=== PATIENT | male | born 1945 ===

== ENCOUNTER 2017-05-19 11:52 | Day surgery (SDC) | payer OTHER ==
[~2017-05-19 11:52] MED LIST: ANCEF/STERILE WATER 2 GM/20 ML 2 GM/20 ML SYRINGE IV NR; MARCAINE 0.5% INFILTRATI ONE; NACL 0.9% IR ONE
[2017-05-19] MEDS ORDERED: XYLOCAINE MPF 2% ONE (12:30)
[2017-05-19] MEDS ORDERED: ZOFRAN ONE (12:51)
[2017-05-19] MEDS ORDERED: DECADRON ONE (12:51)
[2017-05-19] MEDS ORDERED: QUELICIN ONE (12:51)
[2017-05-19] MEDS ORDERED: DIPRIVAN 10 MG/ML IV ONE (12:52)
[2017-05-19] MEDS ORDERED: SUBLIMAZE ONE (12:52)
[2017-05-19] MEDS ORDERED: NACL BACTERIOSTATIC INFILTRATI ONE (13:15)
--- NOTE | 2017-05-19 13:25 | Anesthesia Consultation ---
Anesthesia Consult and Med Hx Date of service: 05/19/17 - Airway Anesthetic Teeth Evaluation: Good ROM Head & Neck: Adequate Mental/Hyoid Distance: Adequate Mallampati Class: Class III Intubation Access Assessment: Good - Pulmonary Exam CTA: Yes - Cardiac Exam Cardiac Exam: RRR - Pre-Operative Health Status ASA Pre-Surgery Classification: ASA1 Proposed Anesthetic Plan: General - Pulmonary Hx Smoking: No Hx Sleep Apnea: No (SAMMI PRE SCREEN LOW RISK) - Cardiovascular System Hx Hypertension: No - Other Systems Hx Cancer: No
--- NOTE | 2017-05-19 13:25 | Anesthesia Day of Surgery ---
Anesthesia Day of Surgery - Day of Surgery Patient Examined: Yes Patient H&P Reviewed: Yes Patient is NPO: Yes Beta Blockers: No Cardiac Clearance: No Pulmonary Clearance: No
[2017-05-19] MEDS ORDERED: MARCAINE 0.5% 30 ML INFILTRATI ONE (13:45)
[2017-05-19] MEDS ORDERED: LACTATED RINGERS 1,000 ML IV SCH (14:00)
[2017-05-19] MEDS ORDERED: PEPCID IV NR (14:00)
[2017-05-19] MEDS ORDERED: DILAUDID ONE (14:26)
--- NOTE | 2017-05-19 15:09 | Short Stay Summary ---
Short Stay Documentation Date of service: 05/19/17 - History H&P: obtained from office - Allergies and Medications Current Medications: Allergies No Known Allergies Allergy (Verified 05/17/17 12:23) Home Medications Medication Instructions Recorded Confirmed Last Taken Type Cyanocobalamin (Vitamin B-12) 5,000 mcg PO DAILY 05/17/17 05/19/17 05/16/17 History [Vitamin B12] Diclofenac Dr [Voltaren Dr] 75 mg PO DAILY 05/17/17 05/19/17 05/16/17 History Multivits,Ca,Min/Iron/FA/Lycop 1 each PO DAILY 05/17/17 05/19/17 05/16/17 History [Centrum Men's Tablet] Active Medications Famotidine (Pepcid) 20 mg IV PREOP NR Stop: 05/19/17 23:59 Last Admin: 05/19/17 13:37 Dose: 20 mg Cefazolin Sodium (Ancef/Sterile Water 2 Gm/20 Ml) 2 gm in 20 mls @ 80 mls/hr IV PREOP NR PRN Reason: Protocol Stop: 05/19/17 23:59 Lactated Ringer's (Lactated Ringers) 1,000 mls @ 75 mls/hr IV DIRECT HENRI Last Admin: 05/19/17 13:35 Dose: 75 mls/hr - Brief post op/procedure progress note Date of procedure: 05/19/17 Pre-op diagnosis: rt inguinal hernia Post-op diagnosis: same Procedure: Rt inguinal hernia repair with mesh Anesthesia: GETA Surgeon: GEM VENEGAS Estimated blood loss: minimal Pathology: none (sac) Specimen disposition: to lab Condition: stable - Hospital course Hospital course: allen on chart - Disposition Condition at discharge: Stable Disposition: DC-01 TO HOME OR SELFCARE Short Stay Discharge Plan Follow up with: RADHA CAZARES MD [Primary Care Provider] - 7 Days
--- NOTE | 2017-05-19 15:45 | Post Anesthesia Evaluation ---
- Post Anesthesia Evaluation Patient Participated: Yes Airway Patent: Yes Stable Respiratory Function: Yes Nausea/Vomiting: No Temp > 96.8F: Yes Pain Manageable: Yes Adequeate Hydration: Yes Anesthesia Complications: No Block Receding Appropriately: Not Applicable Patient on Ventilator: No
[2017-05-19] MEDS ORDERED: NORCO 5/325 PO PRN (16:11)
[2017-05-19 18:51] VITALS: BP 148/78
--- NOTE | 2017-05-20 00:18 | Operative Report ---
PREOPERATIVE DIAGNOSIS: Right inguinal hernia. POSTOPERATIVE DIAGNOSIS: Right inguinal hernia. PROCEDURE: Right inguinal hernia repair with mesh. SURGEON: Godwin Griffin MD ANESTHESIA: General. ESTIMATED BLOOD LOSS: Minimal. FLUIDS: Crystalloid. COMPLICATIONS: No complications. INDICATIONS: This patient is a 71-year-old gentleman referred by Dr. Weir in the office. He had right groin pain. Exam was consistent with a hernia. Risks, benefits and complications were explained. We discussed open versus laparoscopic. He agreed to proceed with an open procedure. DESCRIPTION OF PROCEDURE: The patient was taken to the operative suite, placed in a supine position. After adequate general anesthesia, he was prepped and draped in a sterile fashion. Inguinal incision was made with the Bovie. Sharp dissection was taken down to the external oblique fascia, which was opened. Ilioinguinal nerve could not be appreciated. Spermatic cord was isolated with a Kenyon. Obvious sac could be appreciated, it was excised and was suture ligated with a 2-0 silk in interrupted fashion ____ swelled up remained intact, pushed everything in the retropubic space. Keyhole mesh was used and was attached to the shelving edge of Poupart's ligament and the conjoined tendon using 2-0 Ethibond in interrupted fashion. Copious irrigation was performed. Adequate hemostasis achieved. Vas deferens was uninjured. 0.25% Marcaine was then injected into the subcutaneous space, the external oblique fascia was closed with 2-0 Vicryl in running fashion. Isaura's fascia was closed with 2-0 Vicryl in a running fashion. Skin was closed with sulma. The patient tolerated this procedure well and was extubated and taken to recovery room. He will go home on [place] and follow up in the office. JOB# [id number] [facility]
== END 2017-05-19 18:15 | disposition home or self-care (01) ==
LOC: OR 11:52
PROVIDERS: ATTEND Urology
DX: K40.90 Unilateral inguinal hernia, without obstruction or gangrene, not specified as recurrent (principal); I10 Essential (primary) hypertension
CPT/HCPCS: 49505; 88302; C1781; J0330; J0690; J1100; J1170; J2405; J2704; J3010; J7120